=== PATIENT | male | born 1995 | race Hispanic/Latino ===

== ENCOUNTER 2017-09-09 17:45 | Emergency (ER) | payer SELFPAY | END 2017-09-09 20:39 | disposition home or self-care (01) | LOC: EDH 17:45 | DX: S92.812A Other fracture of left foot, initial encounter for closed fracture (principal); X58.XXXA Exposure to other specified factors, initial encounter; Y93.89 Activity, other specified; Y92.89 Other specified places as the place of occurrence of the external cause; Y99.8 Other external cause status | CPT/HCPCS: 29515; 73590; 73610; 73630; 73700 ==